=== PATIENT | male | born 1945 | race Hispanic/Latino ===

== ENCOUNTER 2017-02-01 12:11 | Emergency (ER) | payer OTHER ==
[2017-02-01 12:12] VITALS: BMI 36.5
[2017-02-01 12:21] VITALS: RESP 20; TEMP 97.4
[2017-02-01] MEDS ORDERED: Acetaminophen-Codeine 300/30 mg Tab PO STA (12:41)
[2017-02-01] MEDS ORDERED: Acetaminophen-Codeine 300/30 mg Tab PO ONE (12:46)
--- NOTE | 2017-02-01 13:26 | C.PDOC ---
History Of Present Illness 71 y/o male comes in for pain to the right rib area s/p fall 01/24. Patient was seen here twice for pain to different areas of his body, but notes not getting rib XRAY done. Patient took Advil with minimal relief. Pain is worse with movement, deep inspiration, and cough. Denies weakness, numbness, SOB, or any other complaints. Time Seen by Provider: 02/01/17 12:35 Chief Complaint (Nursing): Rib Injury History Per: Patient History/Exam Limitations: no limitations Onset/Duration Of Symptoms: Days Current Symptoms Are (Timing): Still Present Severity: Mild Quality: "Pain" Exacerbating Factors: Movement, Deep Breathing, Other (cough) Recent travel outside of the [place]: No Additional History Per: Patient Past Medical History Reviewed: Historical Data, Nursing Documentation, Vital Signs Vital Signs: Last Vital Signs Temp 97.4 F L 02/01/17 12:20 Pulse 80 02/01/17 13:53 Resp 20 02/01/17 13:53 BP 122/74 02/01/17 13:53 Pulse Ox 95 02/01/17 14:15 - Medical History PMH: HTN Denies: Chronic Kidney Disease Family History: States: Unknown Family Hx - Social History Hx Alcohol Use: Yes Hx Substance Use: No - Immunization History Hx Tetanus Toxoid Vaccination: Yes Hx Influenza Vaccination: Yes (12/2016) Hx Pneumococcal Vaccination: Yes (12/2016) Review Of Systems Except As Marked, All Systems Reviewed And Found Negative. Cardiovascular: Positive for: Chest Pain (Rib pain) Respiratory: Negative for: Shortness of Breath Neurological: Negative for: Weakness, Numbness Physical Exam - Physical Exam Appears: Non-toxic, No Acute Distress Skin: Warm, Dry Head: Atraumatic, Normacephalic Eye(s): bilateral: Normal Inspection Neck: Normal ROM Chest: Symmetrical, Tenderness (Right anterior lower chest wall. No ecchymosis or swelling.), No Ecchymosis, No Subcutaneous Emphysema Cardiovascular: Rhythm Regular, No Murmur Respiratory: Normal Breath Sounds, No Rales, No Rhonchi, No Wheezing Extremity: Bilateral: Atraumatic, Normal Color And Temperature, Normal ROM Neurological/Psych: Oriented x3, Normal Speech Gait: Steady ED Course And Treatment O2 Sat by Pulse Oximetry: 95 Pulse Ox Interpretation: Normal Medical Decision Making Medical Decision Making: Plans: * XRAY ribs and chest * Tylenol with codeine XRay viewed by me showing mild bibasilar atelectasis, cardiomegaly. Questionable rib fracture to 7th and 8th ribs. Advise patient to continue with analgesics and to follow up in the clinic. Information given regarding preliminary nature of x-ray reading, with possibility that a fracture not initially detected in the ED may be found on final reading, with subsequent notification. Patient was discharged at 13:30 1406 Radiologist report reviewed showing Acute displaced fractures in the right posterior 8th and 9th ribs and acute nondisplaced fracture in the right posterior 7th rib. Right pleural effusion. No pneumothorax. 1410 Contact patient to confirm rib fracture. Instruct no change in treatment and to continue with pain meds and follow up outpatient Disposition Counseled Patient/Family Regarding: Diagnosis, Need For Followup, Rx Given - Disposition Disposition: HOME/ ROUTINE Disposition Time: 13:39 Condition: STABLE Additional Instructions: Follow up with your primary medical doctor or clinic in 2-5 days for further evaluation. Take pain medication as needed, may also take Advil or Aleve. Return to the emergency department at any time if symptoms persist or worsen. Prescriptions: Acetaminophen with Codeine [Tylenol with Codeine No. 3 300 mg-30 mg] 1 tab PO Q8 PRN #20 tab PRN Reason: Pain, Moderate (4-7) Instructions: Rib Fracture (ED) Forms: [facility] (Montenegrin) - POA Present On Arrival: None - Clinical Impression Clinical Impression: Rib fracture - Scribe Statement The provider has reviewed the documentation as recorded by the Scribe sven goins All medical record entries made by the Scribe were at my direction and personally dictated by me. I have reviewed the chart and agree that the record accurately reflects my personal performance of the history, physical exam, medical decision making, and the department course for this patient. I have also personally directed, reviewed, and agree with the discharge instructions and disposition.
[2017-02-01 13:53] VITALS: BP 122/74; PULSE 80
--- NOTE | 2017-02-01 14:08 | RAD ---
PROCEDURE: Radiographs of the Chest and Right Ribs. HISTORY: pain to rib area s.p fall 1 week ago COMPARISON: 01/25/2017. TECHNIQUE: Frontal radiograph of the chest and multiple oblique radiographs of the right ribs were obtained. FINDINGS: RIGHT RIBS: There are acute displaced fractures in the right posterior 8th and 9th ribs and acute nondisplaced fracture in the right posterior 7th rib. There is diffuse bone demineralization. LUNGS: There is bibasilar atelectasis. PLEURA: Small right pleural effusion. No pneumothorax. CARDIOVASCULAR: Normal sized heart. No pulmonary vascular congestion. OTHER FINDINGS: None. IMPRESSION: Acute displaced fractures in the right posterior 8th and 9th ribs and acute nondisplaced fracture in the right posterior 7th rib. Right pleural effusion. No pneumothorax. There is a discrepancy with the ER preliminary. The final report is tagged to the PA review folder.
[2017-02-01 14:15] VITALS: O2SAT 95
== END 2017-02-01 13:53 | disposition home or self-care (01) ==
LOC: C.ER 12:11
DX: S22.41XD Multiple fractures of ribs, right side, subsequent encounter for fracture with routine healing (principal); W10.9XXD Fall (on) (from) unspecified stairs and steps, subsequent encounter

== ENCOUNTER 2017-02-04 08:44 | Emergency (ER) | payer OTHER ==
[2017-02-04 08:44] VITALS: BMI 36.5
[2017-02-04 08:49] VITALS: BP 110/72; PULSE 72; RESP 18; TEMP 97.7; O2SAT 98
--- NOTE | 2017-02-04 09:10 | C.PDOC ---
History Of Present Illness 71 year old male presents to the ER with a complaint of right sided rib pain. Patient was seen here for the same complaint of 01/30/17 and diagnosed with a right sided rib fracture. Patient was given a Rx for pain medication at that time which he has been taking but states he still has pain. Denies new injury or trauma. Time Seen by Provider: 02/04/17 09:04 Chief Complaint (Nursing): Upper Extremity Problem/Injury History Per: Patient History/Exam Limitations: no limitations Onset/Duration Of Symptoms: Days Current Symptoms Are (Timing): Still Present Quality: "Pain" Exacerbating Factor(s): Strenuous Use Of Affected Area Recent travel outside of the [place]: No Past Medical History Reviewed: Historical Data, Nursing Documentation, Vital Signs Vital Signs: Last Vital Signs Temp 97.7 F 02/04/17 08:46 Pulse 72 02/04/17 08:46 Resp 18 02/04/17 08:46 BP 110/72 02/04/17 08:46 Pulse Ox 98 02/04/17 09:10 - Medical History PMH: HTN Surgical History: No Surg Hx Family History: States: Unknown Family Hx - Social History Hx Alcohol Use: Yes Hx Substance Use: No - Immunization History Hx Tetanus Toxoid Vaccination: Yes Hx Influenza Vaccination: Yes (12/2016) Hx Pneumococcal Vaccination: Yes (12/2016) Review Of Systems Except As Marked, All Systems Reviewed And Found Negative. Musculoskeletal: Positive for: Other (Right sided rib pain) Physical Exam - Physical Exam Appears: Non-toxic, No Acute Distress, Other (Comfortable) Skin: Normal Color, Warm, Dry Head: Atraumatic, Normacephalic Oral Mucosa: Moist Neck: Normal, No Midline Cervical Tenderness, No Paracervical Tenderness Chest: Symmetrical, Tenderness (To palpation of right lateral ribs T7-T9) Cardiovascular: Rhythm Regular Respiratory: Normal Breath Sounds, No Rales, No Rhonchi, No Wheezing Gastrointestinal/Abdominal: Soft, No Tenderness Neurological/Psych: Oriented x3, Normal Speech, Normal Cognition Gait: Steady ED Course And Treatment O2 Sat by Pulse Oximetry: 98 (Room air) Pulse Ox Interpretation: Normal Progress Note: Patient offered pain meds but declined, states he still has more from his Rx leftover. [facility]; patient instructed to follow up with medical records office for his records. Disposition Counseled Patient/Family Regarding: Diagnosis, Need For Followup - Disposition Referrals: [facility] [Outside] Disposition: HOME/ ROUTINE Disposition Time: 09:10 Condition: STABLE Additional Instructions: GO TO MEDICAL RECORDS AFTER DISCHARGE, AND THEN [facility]EEK CONTINUE YOUR PAIN MEDICATION NEEDED RETURN TO ER IF SYMPTOMS WORSEN Instructions: Rib Fracture (ED) Forms: [employer] (Nicaraguan) Print Language: BAHAMIAN - Clinical Impression Clinical Impression: Rib fractures - Scribe Statement The provider has reviewed the documentation as recorded by the Scribalberto Connor All medical record entries made by the Ameliaibalberto were at my direction and personally dictated by me. I have reviewed the chart and agree that the record accurately reflects my personal performance of the history, physical exam, medical decision making, and the department course for this patient. I have also personally directed, reviewed, and agree with the discharge instructions and disposition.
== END 2017-02-04 09:15 | disposition home or self-care (01) ==
LOC: C.ER 08:44
DX: S22.41XD Multiple fractures of ribs, right side, subsequent encounter for fracture with routine healing (principal); W10.9XXD Fall (on) (from) unspecified stairs and steps, subsequent encounter